=== PATIENT | male | born 1975 | race Caucasian/White ===

== ENCOUNTER → 2023-08-10 | Outpatient (CLI) | payer BC ==
--- NOTE | 2023-08-10 14:18 | US ---
EXAMINATION TYPE: US bladder DATE OF EXAM: 08/10/2023 COMPARISON: NONE CLINICAL INDICATION: Male, 48 years old with history of N40.1 BENIGN PROSTATIC HYPERPLASIA WITH LOWER URIN; Benign prostatic hyperplasia with lower urinary tract symptoms. TECHNIQUE: Multiple sonographic images of the bladder are obtained. FINDINGS: EXAM MEASUREMENTS: Post Void Residual Volume: 0 mL, bladder appears empty post-void. SENIOR UI UX DESIGNER NOTES: No abnormalities seen at this time. Color Doppler performed to assess ureteral jets. Bilateral Jets seen: Yes Normal Post Void Residual (less than 50ml): Yes IMPRESSION: 1. No evidence for acute process. 2. No significant postvoid residual.
== END | disposition home or self-care (01) ==
LOC: RADUSWWP 12:58
PROVIDERS: ATTEND Family Medicine
DX: N40.1 Benign prostatic hyperplasia with lower urinary tract symptoms (principal)
CPT/HCPCS: 76857